=== PATIENT | male | born 1965 | race Caucasian/White ===

== ENCOUNTER 2016-11-06 21:52 | Emergency (ER) | payer OTHER ==
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
== END 2016-11-06 23:21 | disposition home or self-care (01) ==
LOC: ED 21:52
DX: S76.012A Strain of muscle, fascia and tendon of left hip, initial encounter (principal); M16.12 Unilateral primary osteoarthritis, left hip; S09.90XA Unspecified injury of head, initial encounter; V43.52XA Car driver injured in collision with other type car in traffic accident, initial encounter; Y92.410 Unspecified street and highway as the place of occurrence of the external cause

== ENCOUNTER 2016-11-10 22:10 | Emergency (ER) | payer OTHER ==
[2016-11-10] MEDS ORDERED: HYDROMORPHONE HCL 1 MG/ML SYRINGE ONE (23:07)
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
== END 2016-11-11 00:01 | disposition home or self-care (01) ==
LOC: ED 22:10
DX: M54.6 Pain in thoracic spine (principal); I47.1 Supraventricular tachycardia; I49.9 Cardiac arrhythmia, unspecified; K21.9 Gastro-esophageal reflux disease without esophagitis; Z86.14 Personal history of Methicillin resistant Staphylococcus aureus infection; Z87.891 Personal history of nicotine dependence; Z79.1 Long term (current) use of non-steroidal anti-inflammatories (NSAID); Z79.891 Long term (current) use of opiate analgesic; Z79.899 Other long term (current) drug therapy; Z91.030 Bee allergy status; M16.10 Unilateral primary osteoarthritis, unspecified hip; V89.2XXA Person injured in unspecified motor-vehicle accident, traffic, initial encounter; Y92.410 Unspecified street and highway as the place of occurrence of the external cause
CPT/HCPCS: 71020; 99282; 96372; 93005; 99283; J1170